=== PATIENT | male | born 1990 | race Caucasian/White ===

== ENCOUNTER 2018-08-01 15:33 | Observation (INO) | payer BC, SELFPAY ==
[2018-08-01 15:34] VITALS: BP 114/62; PULSE 58; RESP 15; TEMP 36.7; O2SAT 99; BMI 23.9
[2018-08-01 16:06] LABS: Absolute Lymphocyte Count 0.77 X10^3/ul (0.83-4.51); Absolute Neutrophil Count 4.9 X10^3/uL (2.0-7.7); Basophil# 0.01 X10^3/uL; Basophil% 0.2 % (0-1); Eosinophil# 0.07 X10^3/uL; Eosinophils% 1.1 % (0-5); Hematocrit 40.8 % (40-54); Hemoglobin 13.8 g/dl (13.0-16.5); Lymphocyte # 0.77 X10^3/ul (4.0); Lymphocyte % 12.4 % (19-41); Mean Corp Hgb Conc 33.8 g/gl (32-36); Mean Corpuscular Hgb 28.5 pg (27.0-32.0); Mean Corpuscular Volume 84.1 fL (80-94); Mean Platelet Vol. 9.1 fl (6.2-12.0); Monocyte# 0.43 X10^3/uL; Monocyte% 6.9 % (0-10); Neutrophil # 4.93 X10^3/uL (2.7-7.7); Neutrophil % 79.2 % (47-70); Platelet Count 213 K/mm3 (150-450); RBC Distribution Width CV 11.9 % (11.6-14.6); RBC Distribution Width SD 35.8 fl (35.1-43.9); Red Blood Count 4.85 M/mm3 (4.6-6.2); White Blood Count 6.2 K/mm3 (4.4-11.0)
[2018-08-01 16:13] LABS: Anion Gap 8 (5-15); BUN 14 mg/dL (7-18); BUN/Creat Ratio 14.4 RATIO (10-20); Calcium,Total 9.1 mg/dL (8.5-10.1); Chloride 106 mmol/L (98-107); Creatinine, Serum 0.97 mg/dL (0.70-1.30); EST Glomerular Filtration Rate 99 mL/min (>60); Est Glom Filt Rate - Afr Amer 120 mL/min (>60); Estimated Creatinine Clearance 122.91 ml/min; Glucose 84 mg/dL (74-106); Potassium 4.2 mmol/L (3.5-5.1); Sodium Level 140 mmol/L (136-145)
[2018-08-01 16:14] LABS: POSITIVE COUNT NO; POSITIVE DIFFERENTIAL NO; POSITIVE MORPHOLOGY NO
--- NOTE | 2018-08-01 16:20 | CT_ITS ---
STUDY: CT ABDOMEN AND PELVIS WITH CONTRAST REASON FOR EXAM: Male, 28 years old. Limited abdominal pain status post appendectomy and surgery for adhesions RADIATION DOSAGE (If Supplied By Facility): CTDIvol = ( 18.11 ) mGy, DLP = ( 459.04 ) mGycm TECHNIQUE: Transaxial images were obtained from the dome of the diaphragm to the symphysis pubis without oral contrast. 100ml IV/Oral Isovue 300 was administered. Sagittal and coronal images were reconstructed. Individualized dose optimization techniques were used for this CT. COMPARISON: None. FINDINGS: The visualized lung bases are unremarkable. The visualized portions of the heart are within normal limits. Normal liver. Normal gallbladder and extrahepatic biliary system. Normal spleen. Normal pancreas. Normal bilateral adrenal glands. Normal right kidney. Normal left kidney. Normal visualized stomach. There is diffuse distention of small bowel and fecal filled colon with prominent fecal retention in the sigmoid. There are decompressed loops of noncontrast filled distal small bowel in the upper pelvis to the right of midline and partial small bowel obstruction is not excluded Postop change status post appendectomy.. Normal abdominal aorta. Normal inferior vena cava. Normal retroperitoneum. Normal urinary bladder. There is a small amount of fluid within the pouch of Garrick. Normal abdominal wall. Normal osseous structures. CT/Abdomen/Pelvis WITH Contrast IMPRESSION: Findings which may be consistent with partial distal small bowel obstruction with small amount of fluid in the pouch of Garrick. Recommend clinical correlation and follow-up Electronically Signed: Peter Agarwal MD at 18:34 EDT , Service support ,
--- NOTE | 2018-08-01 16:22 | ED.VISSUMM ---
- ER Visit Summary Date of Service: 08/01/18 Chief Complaint: Abdominal pain History of Present Illness: The patient is a 28 M presenting with abdominal pain. Patient states this started earlier today. He has had decreased appetite. He denies nausea, vomiting, diarrhea. His last bowel movement was yesterday. He denies fever. He has history of previous appendectomy. He states following the surgery 2 years later he had a small bowel obstruction secondary to adhesions. He states this pain feels similar. Denies urinary complaints. Denies other complaints. Physical Examination: Vitals are stable. Patient is afebrile. Alert no acute distress. HEENT exam is unremarkable. Neck is supple. Lungs are clear and equal bilaterally. Heart is regular rate and rhythm. Abdomen is soft suprapubic tenderness with no rebound or guarding Extremities are unremarkable. Skin is warm and dry. No focal neurologic deficit. Remainder of exam is unremarkable. Emergency Department Course and Treatment: Patient was given morphine, Zofran IV. CBC, chemistries unremarkable. Liver lipase are normal. Urinalysis unremarkable. CT abdomen pelvis with IV and oral contrast findings which may be consistent with partial distal small bowel obstruction with small amount of fluid in the pouch of Garrick. NG tube was placed. Discussed with Dr. Melednez and patient will be admitted. Disposition: Admission Impression: Partial small bowel obstruction This note was generated with [employer] dictation software. It may contain incorrect words, spelling, and punctuation that were not noted in review of the chart prior to signing ED Disposition - Plan for ED Patient: Referrals: Kurt Tijerina MD [Primary Care Provider] -
[2018-08-01 16:25] LABS: Bacteria 0 SEEN /hpf (None Seen); Mucous, Urine 0 SEEN /hpf (<or=2+); Red Blood Cells-Urine 0 SEEN /hpf (0-5); Squamous Epithelial Cells - UA 0 SEEN /hpf (0-5); White Blood Cells 0 SEEN /hpf (0-5)
[2018-08-01 16:30] LABS: Color, Urine Yellow (Yellow); Glucose, Dipstick Normal (Normal); Ketone-Dipstick 50 mg/dl (Negative); Leukocyte Esterase-Dipstick 25 /ul (Negative); Nitrite-Dipstick Negative (Negative); Occult Blood-Urine Negative /ul (Negative); Protein-Dipstick Negative (Negative); Urine Bilirubin Dipstick Negative (Negative); Urine Clarity Sl. Cloudy (Clear); Urine Urobilinogen Normal (Normal)
[2018-08-01] MEDS: Morphine 4 MG/ML Syringe IV ×3 (16:32→20:12)
[2018-08-01] MEDS: Ondansetron 4 MG/2 ML Vial IV (16:32)
[2018-08-01 17:09] LABS: AST(SGOT) 35 U/L (15-37); Alanine Aminotransfer ALT/SGPT 37 U/L (16-61); Albumin, Serum 4.7 g/dL (3.2-5.0); Alkaline Phosphatase 55 U/L (45-117); Bilirubin, Direct 0.24 mg/dL (0.00-0.30); Globulin 2.6 g/dL (2.2-4.2); Lipase 62 U/L (73-393); Protein, Total 7.3 g/dL (6.4-8.2)
[2018-08-01 17:34] VITALS: BP 119/65; PULSE 55; RESP 16; O2SAT 99
[2018-08-01] MEDS: 0.9% Normal Saline 1,000 ML 999 ML IV (18:19)
[2018-08-01 19:39] VITALS: BP 119/70; PULSE 60; PULSE 65; RESP 14; O2SAT 98
--- NOTE | 2018-08-01 19:46 | RAD_ITS ---
STUDY: X-RAY - ABDOMEN/PELVIS REASON FOR EXAM: Male, 28 years old. NG placement TECHNIQUE: KUB COMPARISON: None. FINDINGS: Normal visualized lung bases. Nonspecific bowel distention.. There is no demonstrated free abdominal air. The visualized liver, spleen and kidneys are grossly normal in size and morphology. NG tube is noted with tip in the proximal gastric fundus Normal soft tissue structures. Normal visualized osseous structures. RAD/Abdomen Single View (Portable) IMPRESSION: NG tube placement in proximal gastric fundus Electronically Signed: Peter Agarwal MD at 20:15 EDT , Service support ,
[2018-08-01 19:53] VITALS: BMI 23.9
[2018-08-01 20:36] VITALS: BP 110/58; PULSE 61; RESP 16; TEMP 36.8; O2SAT 97
[2018-08-01 20:40] VITALS: BMI 24.3
[2018-08-01] MEDS: Lactated Ringers 1,000 ML 125 ML IV (21:19)
[2018-08-02 02:29] VITALS: BP 126/49; PULSE 64; RESP 16; TEMP 36.8; O2SAT 96
[2018-08-02] MEDS: Morphine 2 MG/ML Syringe IV ×3 (02:40→07:20)
[2018-08-02] MEDS: Lactated Ringers 1,000 ML 125 ML IV (05:05)
--- NOTE | 2018-08-02 05:55 | RAD_ITS ---
STUDY: X-RAY - ABDOMEN/PELVIS REASON FOR EXAM: Male, 28 years old. History of a small bowel obstruction. TECHNIQUE: Single AP view of the abdomen / pelvis. COMPARISON: Comparison is made with prior study dated August 01, 2018. FINDINGS: The tip of the nasogastric tube is in the distal portion of the body of the stomach. Oral contrast is seen throughout the entire colon . No evidence of a small bowel obstruction. The visualized liver, spleen and kidneys are grossly normal in size and morphology. Contrast is seen within the urinary bladder from prior CT scan. Normal visualized osseous structures. RAD/Abdomen Single View IMPRESSION: Oral contrast is seen throughout the entire colon. Electronically Signed: Luther Babb, at 8:22 EDT , Service support ,
--- NOTE | 2018-08-02 06:57 | PCM.HP.BLA ---
History and Physical Date of Admission: 08/02/18 Chief Complaint: abdominal pain History of Present Illness: 28 y/o WM presents with abdominal pain. Had open appendectomy about 10 years ago for perforated appendicitis. Had small bowel obstruction previously, about 8 years ago. Pain started earlier yesterday. Also had anorexia. Denies nausea/emesis. Last had bowel movement two days ago. Admitted last night. NG tube decompression and IV hydration was given. Patient states that he had a small amount of flatus this morning, no bowel movement. Denies abdominal pain at present. Past Medical History: denies major medical illnesses Past Surgical History: open appendectomy Medications: denies Allergies: demerol Social history: TOB use denies Review of Systems: General - denies fevers Cardiovascular denies chest pain, denies history of heart attack Pulmonary denies shortness of breath, denies coughing up blood Gastrointestinal as per HPI, denies blood in stools Neurological has headaches, denies numbness/weakness of extremities, denies seizure Genitourinary denies burning with urination, denies blood in urine Hematological denies spontaneous/prolonged bleeding Skin denies open non healing wounds Musculoskeletal denies arthritis Endocrine denies diabetes Psychological denies hallucinations Physical examination: Vital signs Temp 98.3F HR 61 RR 18 BP 126/49 General WD/WN WM in no apparent distress, alert and oriented, not septic appearing HEENT Normocephalic. EOM intact with sclera clear and no icterus noted. Neck is supple with no jugular venous distention noted. Trachea is midline. No masses noted. Lungs no labored breathing noted, such as retractions. No cough heard. Heart regular Abdomen soft and benign. well healed lower midline abdominal incision, hypoactive bowel sounds, non tender this morning Extremities no calf tenderness noted. No pitting edema noted. Genitourinary/Rectal deferred Skin normal skin integrity. Neurological non focal. Psychological normal affect, patient is calm and appropriate Labs - WBC 6.2k, Hct 40.8, plt 213k KUB this morning - CT contrast is in the colon Impression partial small bowel obstruction - resolved Discussion/Plan: I have discussed the above with the patient. He has improved overnight with NG tube decmpression and IV hydration. Will plan d/c NG tube and then advance diet. If tolerates, will d/c to home after lunch.
[2018-08-02 08:00] VITALS: BP 125/57; PULSE 58; RESP 16; TEMP 36.3; O2SAT 98
[2018-08-02] MEDS: Ensure Clear 120 ML Liquid PO (09:41)
[2018-08-02 10:34] VITALS: BP 114/60; PULSE 64; RESP 18; TEMP 36.8; O2SAT 98
== END 2018-08-02 11:00 | disposition home or self-care (01) ==
LOC: ED 16:56 → MS3 19:31
PROVIDERS: Admitting Provider Surgery; Emergency Provider Emergency Medicine; Family Provider Family Medicine; PCP Family Medicine; Visit Provider Surgery
DX: K56.51 Intestinal adhesions [bands], with partial obstruction (principal)
CPT/HCPCS: 74018; 74177; 80048; 80076; 81001; 83690; 85025; 96361; 96374; 96375; 96376; 99218; 99285; J7030; J7120; Q9967; A4216; G0378; J2405